=== PATIENT | male | born 1985 | race African-American/Black ===

== ENCOUNTER 2017-04-04 20:18 | Emergency (ER) | payer OTHER ==
[2017-04-04 20:50] LABS: BASOPHILS 1.6 % (0-2); EOSINOPHILS 1.9 % (0-7); HEMATOCRIT 40.3 % (42.0-54.0); HEMOGLOBIN 13.8 g/dL (13.5-17.5); LYMPHOCYTES 63.1 % (15-50); MCH 31.3 pg (26.0-34.0); MCHC 34.2 g/dL (31.0-37.0); MCV 91.4 fL (80.0-100.0); MEAN PLATELET VOLUME 9.8 fL (7.4-10.4); MONOCYTES 8.2 % (2-11); NEUTROPHILS 25.2 % (40-80); RBC 4.41 10x6/uL (4.20-6.10); RDW 18.3 % (11.5-14.5); WBC 6.9 10x3/uL (4.8-10.8)
[2017-04-04 20:53] LABS: PLATELET COUNT 120 10x3/uL (130-400)
[2017-04-04 21:07] LABS: ALBUMIN 3.9 g/dL (3.4-5.0); ALKALINE PHOSPHATASE 64 U/L (46-116); ALT (SGPT) 103 U/L (10-68); AMYLASE - SERUM 101 U/L (25-115); CALC OSMOLALITY 281 mosm/kg (275-300); CALCIUM 8.1 mg/dL (8.5-10.1); CARBON DIOXIDE 28.6 mmol/L (21.0-32.0); CHLORIDE - SERUM 104 mmol/L (98-107); CREATININE - SERUM 0.9 mg/dL (0.6-1.3); GLUCOSE 87 mg/dL (74-106); LIPASE 385 U/L (73-393); POTASSIUM - SERUM 3.4 mmol/L (3.5-5.1); PROTEIN - SERUM 7.9 g/dL (6.4-8.2); SODIUM 143 mmol/L (136-145); UREA NITROGEN 6 mg/dL (7-18); eGFR NON AFRICAN AMERICAN > 90 mL/min (90-120)
== END 2017-04-04 21:06 | disposition left against medical advice (07) ==
LOC: D.ER 20:18
PROVIDERS: Family Medicine
DX: R10.13 Epigastric pain (principal)

== ENCOUNTER 2017-11-11 22:54 | Emergency (ER) | payer OTHER ==
[2017-11-11 23:54] LABS: HEMATOCRIT 44.9 % (42.0-54.0); HEMOGLOBIN 15.1 g/dL (13.5-17.5); MCH 30.9 pg (26.0-34.0); MCHC 33.6 g/dL (31.0-37.0); MEAN PLATELET VOLUME 9.3 fL (7.4-10.4); PLATELET COUNT 192 10x3/uL (130-400); RBC 4.88 10x6/uL (4.20-6.10); RDW 14.7 % (11.5-14.5); WBC 9.8 10x3/uL (4.8-10.8)
[2017-11-12 00:07] LABS: ALBUMIN 4.3 g/dL (3.4-5.0); ALKALINE PHOSPHATASE 63 U/L (46-116); ALT (SGPT) 25 U/L (10-68); BILIRUBIN - TOTAL 0.19 mg/dL (0.2-1.3); CALC OSMOLALITY 289 mosm/kg (275-300); CARBON DIOXIDE 29.8 mmol/L (21.0-32.0); CHLORIDE - SERUM 105 mmol/L (98-107); GLUCOSE 99 mg/dL (74-106); MAGNESIUM - SERUM 2.3 mg/dL (1.8-2.4); PROTEIN - SERUM 8.1 g/dL (6.4-8.2); SODIUM 146 mmol/L (136-145); UREA NITROGEN 10 mg/dL (7-18); eGFR NON AFRICAN AMERICAN > 90 mL/min (90-120)
[2017-11-12 00:13] LABS: EOSINOPHILS 1 % (0-7); LYMPHOCYTES 66 % (15-50); MONOCYTES 6 % (2-11); NEUTROPHILS 27 % (40-80); PLATELET ESTIMATE DECREASED
== END 2017-11-12 13:00 | disposition home or self-care (01) ==
LOC: D.ER 22:54
PROVIDERS: Family Medicine
DX: F10.129 Alcohol abuse with intoxication, unspecified (principal); F10.10 Alcohol abuse, uncomplicated

== ENCOUNTER 2017-11-12 23:18 | Emergency (ER) | payer OTHER | END 2017-11-13 14:30 | disposition home or self-care (01) | LOC: D.ER 23:18 | DX: F10.10 Alcohol abuse, uncomplicated (principal); F17.200 Nicotine dependence, unspecified, uncomplicated ==

== ENCOUNTER 2018-11-13 17:29 | Emergency (ER) | payer SELFPAY ==
[~2018-11-13] VITALS: Ht 182.9 cm; Wt 77.3 kg
[2018-11-13 17:36] VITALS: Ht 182.9 cm; Wt 77.3 kg
[2018-11-14 11:01] VITALS: BP 114/80
== END 2018-11-14 11:04 | disposition home or self-care (01) ==
LOC: D.ER 17:29
DX: F10.129 Alcohol abuse with intoxication, unspecified (principal); F91.9 Conduct disorder, unspecified

== ENCOUNTER 2019-04-01 23:29 | Emergency (ER) | payer MEDICAID ==
[~2019-04-01] VITALS: Ht 182.9 cm; Wt 75.0 kg
[2019-04-01 23:33] VITALS: Ht 182.9 cm; Wt 75.0 kg
[2019-04-02 00:09] LABS: HEMATOCRIT 42.4 % (42.0-54.0); HEMOGLOBIN 14.4 g/dL (13.5-17.5); LYMPHOCYTES 56.6 % (15-50); MCH 31.2 pg (26.0-34.0); MEAN PLATELET VOLUME 9.5 fL (7.4-10.4); NEUTROPHILS 35.1 % (40-80); PLATELET COUNT 166 10x3/uL (130-400); RBC 4.61 10x6/uL (4.20-6.10); RDW 16.3 % (11.5-14.5); WBC 6.4 10x3/uL (4.8-10.8)
[2019-04-02 00:23] LABS: ALBUMIN 3.9 g/dL (3.4-5.0); ALKALINE PHOSPHATASE 87 U/L (46-116); ALT (SGPT) 35 U/L (10-68); BILIRUBIN - TOTAL 0.35 mg/dL (0.2-1.3); CALC OSMOLALITY 281 mosm/kg (275-300); CALCIUM 8.7 mg/dL (8.5-10.1); CARBON DIOXIDE 28.9 mmol/L (21.0-32.0); CHLORIDE - SERUM 103 mmol/L (98-107); CREATININE - SERUM 0.9 mg/dL (0.6-1.3); LIPASE 218 U/L (73-393); POTASSIUM - SERUM 3.9 mmol/L (3.5-5.1); PROTEIN - SERUM 8.2 g/dL (6.4-8.2); SODIUM 143 mmol/L (136-145); UREA NITROGEN 10 mg/dL (7-18); eGFR NON AFRICAN AMERICAN > 90 mL/min (90-120)
[2019-04-02 00:28] LABS: GLUCOSE 70 mg/dL (74-106)
[2019-04-02] MEDS ORDERED: CARAFATE1 G PO (00:41)
[2019-04-02 01:49] VITALS: BP 105/75
== END 2019-04-02 01:49 | disposition home or self-care (01) ==
LOC: D.ER 23:29
PROVIDERS: Emergency Medicine
DX: K29.20 Alcoholic gastritis without bleeding (principal)

== ENCOUNTER 2019-04-09 09:35 | Emergency (ER) | payer MEDICAID ==
[~2019-04-09 09:35] MED LIST: CARAFATE1 G PO
[2019-04-09 09:36] VITALS: BP 114/71; BMI 23.1
[2019-04-09 10:05] LABS: BASOPHILS 0.8 % (0-2); EOSINOPHILS 1.5 % (0-7); HEMATOCRIT 38.3 % (42.0-54.0); HEMOGLOBIN 13.4 g/dL (13.5-17.5); LYMPHOCYTES 50.8 % (15-50); MCH 31.4 pg (26.0-34.0); MCV 89.7 fL (80.0-100.0); MEAN PLATELET VOLUME 9.7 fL (7.4-10.4); MONOCYTES 6.6 % (2-11); NEUTROPHILS 40.3 % (40-80); PLATELET COUNT 141 10x3/uL (130-400); RBC 4.27 10x6/uL (4.20-6.10); RDW 16.2 % (11.5-14.5); WBC 7.4 10x3/uL (4.8-10.8)
[2019-04-09 10:15] LABS: ALBUMIN 3.7 g/dL (3.4-5.0); ALKALINE PHOSPHATASE 72 U/L (46-116); ALT (SGPT) 52 U/L (10-68); BILIRUBIN - TOTAL 0.23 mg/dL (0.2-1.3); CALCIUM 8.4 mg/dL (8.5-10.1); CARBON DIOXIDE 24.5 mmol/L (21.0-32.0); CHLORIDE - SERUM 104 mmol/L (98-107); CREATININE - SERUM 0.9 mg/dL (0.6-1.3); POTASSIUM - SERUM 3.5 mmol/L (3.5-5.1); PROTEIN - SERUM 7.7 g/dL (6.4-8.2); SODIUM 141 mmol/L (136-145); UREA NITROGEN 8 mg/dL (7-18); eGFR NON AFRICAN AMERICAN > 90 mL/min (90-120)
[2019-04-09 10:17] LABS: CALC OSMOLALITY 279 mosm/kg (275-300); GLUCOSE 118 mg/dL (74-106)
== END 2019-04-09 17:10 ==
LOC: D.ER 09:35
PROVIDERS: Family Medicine
DX: R45.1 Restlessness and agitation (principal); F10.10 Alcohol abuse, uncomplicated; F91.9 Conduct disorder, unspecified; S00.81XA Abrasion of other part of head, initial encounter; X58.XXXA Exposure to other specified factors, initial encounter; Y92.89 Other specified places as the place of occurrence of the external cause

== ENCOUNTER 2019-05-26 20:12 | Emergency (ER) | payer MEDICAID ==
[~2019-05-26] VITALS: Ht 182.9 cm; Wt 81.8 kg
[2019-05-26 20:13] VITALS: Ht 182.9 cm; Wt 81.8 kg
[2019-05-27 02:46] VITALS: BP 126/74
== END 2019-05-27 03:30 | disposition home or self-care (01) ==
LOC: D.ER 20:12
DX: F10.129 Alcohol abuse with intoxication, unspecified (principal)

== ENCOUNTER 2019-06-21 14:35 | Emergency (ER) | payer MEDICAID ==
[~2019-06-21] VITALS: Ht 182.9 cm; Wt 81.8 kg
[2019-06-21 14:39] VITALS: BP 105/57; Ht 182.9 cm; Wt 81.8 kg
== END 2019-06-21 17:51 | disposition left against medical advice (07) ==
LOC: D.ER 14:35
DX: F10.129 Alcohol abuse with intoxication, unspecified (principal); F17.200 Nicotine dependence, unspecified, uncomplicated

== ENCOUNTER 2019-06-22 21:54 | Emergency (ER) | payer MEDICAID ==
[~2019-06-22] VITALS: Ht 182.9 cm; Wt 79.5 kg
[2019-06-22 21:55] VITALS: Ht 182.9 cm; Wt 79.5 kg
[2019-06-22 22:13] LABS: HEMATOCRIT 35.8 % (42.0-54.0); HEMOGLOBIN 12.6 g/dL (13.5-17.5); MCH 31.6 pg (26.0-34.0); MCHC 35.2 g/dL (31.0-37.0); MCV 89.7 fL (80.0-100.0); MEAN PLATELET VOLUME 9.6 fL (7.4-10.4); PLATELET COUNT 152 10x3/uL (130-400); RBC 3.99 10x6/uL (4.20-6.10); RDW 17.1 % (11.5-14.5); WBC 7.3 10x3/uL (4.8-10.8)
[2019-06-22 22:29] LABS: ALBUMIN 3.6 g/dL (3.4-5.0); ALKALINE PHOSPHATASE 61 U/L (46-116); ALT (SGPT) 26 U/L (10-68); CALC OSMOLALITY 287 mosm/kg (275-300); CALCIUM 8.3 mg/dL (8.5-10.1); CARBON DIOXIDE 27.4 mmol/L (21.0-32.0); CHLORIDE - SERUM 106 mmol/L (98-107); GLUCOSE 95 mg/dL (74-106); POTASSIUM - SERUM 3.6 mmol/L (3.5-5.1); PROTEIN - SERUM 7.5 g/dL (6.4-8.2); SODIUM 145 mmol/L (136-145); UREA NITROGEN 9 mg/dL (7-18); eGFR NON AFRICAN AMERICAN 90 mL/min (90-120)
[2019-06-22 22:38] LABS: APPEARANCE CLEAR (CLEAR); BILIRUBIN NEGATIVE (NEGATIVE); COLOR STRAW (YELLOW); GLUCOSE NEGATIVE (NEGATIVE); KETONE NEGATIVE (NEGATIVE); NITRITE NEGATIVE (NEGATIVE); PROTEIN NEGATIVE (NEGATIVE); UROBILINOGEN NORMAL (NORMAL)
[2019-06-22 22:43] LABS: EOSINOPHILS 2 % (0-7); LYMPHOCYTES 73 % (15-50); MONOCYTES 1 % (2-11); NEUTROPHILS 24 % (40-80); PLATELET ESTIMATE NORMAL
[2019-06-22 22:43] LABS: UDS - AMPHET NEGATIVE QUAL (NEGATIVE); UDS - BARB NEGATIVE QUAL (NEGATIVE); UDS - BENZO NEGATIVE QUAL (NEGATIVE); UDS - COCAINE NEGATIVE QUAL (NEGATIVE); UDS - OPIATE NEGATIVE QUAL (NEGATIVE); UDS - PCP NEGATIVE QUAL (NEGATIVE); UDS - THC POSITIVE QUAL (NEGATIVE)
[2019-06-23 10:49] VITALS: BP 114/63
== END 2019-06-23 10:50 | disposition home or self-care (01) ==
LOC: D.ER 21:54
PROVIDERS: Family Medicine
DX: F10.129 Alcohol abuse with intoxication, unspecified (principal); Y90.8 Blood alcohol level of 240 mg/100 ml or more; F17.210 Nicotine dependence, cigarettes, uncomplicated

== ENCOUNTER 2021-01-17 15:47 | Emergency (ER) | payer BC ==
[~2021-01-17] VITALS: Ht 182.9 cm; Wt 77.3 kg
[2021-01-17 15:57] VITALS: BP 109/78; Ht 182.9 cm; Wt 77.3 kg
== END 2021-01-17 16:37 | disposition left against medical advice (07) ==
LOC: D.ER 15:47
DX: T73.0XXA Starvation, initial encounter (principal); Z53.29 Procedure and treatment not carried out because of patient's decision for other reasons

== ENCOUNTER 2021-01-30 21:08 | Emergency (ER) | payer BC ==
[~2021-01-30] VITALS: Ht 182.9 cm; Wt 72.7 kg
[2021-01-30 21:14] VITALS: Ht 182.9 cm; Wt 72.7 kg
[2021-01-30 21:43] LABS: BASOPHILS 0.9 % (0-2); EOSINOPHILS 0.9 % (0-7); HEMOGLOBIN 13.6 g/dL (13.5-17.5); IMMATURE GRANULOCYTES 0.1 % (0-5); LYMPHOCYTE ABS# 4.76 10x3/uL (1.32-3.57); LYMPHOCYTES 54.5 % (15-50); MCH 31.1 pg (26.0-34.0); MCV 91.3 fL (80.0-100.0); MEAN PLATELET VOLUME 8.7 fL (7.4-10.4); NEUTROPHILS 36.6 % (40-80); PLATELET COUNT 236 10x3/uL (130-400); RBC 4.38 10x6/uL (4.20-6.10); RDW 16.5 % (11.5-14.5); WBC 8.7 10x3/uL (4.8-10.8)
[2021-01-30 21:48] LABS: CALC OSMOLALITY 285 mosm/kg (275-300); CALCIUM 8.3 mg/dL (8.5-10.1); CARBON DIOXIDE 29.5 mmol/L (21.0-32.0); CHLORIDE - SERUM 106 mmol/L (98-107); CREATININE - SERUM 1.2 mg/dL (0.6-1.3); GLUCOSE 100 mg/dL (74-106); POTASSIUM - SERUM 3.6 mmol/L (3.5-5.1); SODIUM 144 mmol/L (136-145); UREA NITROGEN 11 mg/dL (7-18); eGFR NON AFRICAN AMERICAN 73 mL/min (90-120)
[2021-01-30 22:14] LABS: ALBUMIN 3.9 g/dL (3.4-5.0); ALKALINE PHOSPHATASE 73 U/L (30-120); ALT (SGPT) 25 U/L (10-68); BILIRUBIN - TOTAL 0.05 mg/dL (0.2-1.3); CREATINE KINASE 996 UL (21-232); LIPASE 405 U/L (73-393); MAGNESIUM - SERUM 2.5 mg/dL (1.8-2.4); PROTEIN - SERUM 7.9 g/dL (6.4-8.2); TROPONIN-I < 0.017 ng/mL (0.000-0.060)
[2021-01-30 23:06] LABS: UDS - AMPHET NEGATIVE QUAL (NEGATIVE); UDS - BARB NEGATIVE QUAL (NEGATIVE); UDS - BENZO NEGATIVE QUAL (NEGATIVE); UDS - COCAINE NEGATIVE QUAL (NEGATIVE); UDS - OPIATE POSITIVE QUAL (NEGATIVE); UDS - PCP NEGATIVE QUAL (NEGATIVE); UDS - THC NEGATIVE QUAL (NEGATIVE)
[2021-01-30 23:09] LABS: BILIRUBIN NEGATIVE (NEGATIVE); KETONE NEGATIVE (NEGATIVE); NITRITE NEGATIVE (NEGATIVE); UROBILINOGEN NORMAL mg/dL (< 2)
[2021-01-30 23:10] LABS: BACTERIA FEW HPF (NONE SEEN); SQUAMOUS EPITHELIAL 0-5 HPF (0-4); WHITE CELLS - URINE NONE SEEN HPF (0-1)
[2021-01-31 14:25] VITALS: BP 141/98
== END 2021-01-31 15:16 | disposition home or self-care (01) ==
LOC: D.ER 21:08
PROVIDERS: Family Medicine
DX: F10.129 Alcohol abuse with intoxication, unspecified (principal); Y90.8 Blood alcohol level of 240 mg/100 ml or more; R07.9 Chest pain, unspecified

== ENCOUNTER 2021-02-03 22:23 | Emergency (ER) | payer BC ==
[~2021-02-03] VITALS: Ht 182.9 cm; Wt 72.7 kg
[2021-02-03 22:24] VITALS: Ht 182.9 cm; Wt 72.7 kg
[2021-02-03 23:04] LABS: BASOPHILS 0.8 % (0-2); EOSINOPHILS 1.2 % (0-7); HEMATOCRIT 41.1 % (42.0-54.0); HEMOGLOBIN 13.7 g/dL (13.5-17.5); LYMPHOCYTE ABS# 4.24 10x3/uL (1.32-3.57); LYMPHOCYTES 64.4 % (15-50); MCH 30.8 pg (26.0-34.0); MCHC 33.3 g/dL (31.0-37.0); MCV 92.4 fL (80.0-100.0); MEAN PLATELET VOLUME 8.8 fL (7.4-10.4); MONOCYTES 6.2 % (2-11); NEUTROPHILS 27.4 % (40-80); RBC 4.45 10x6/uL (4.20-6.10); RDW 16.8 % (11.5-14.5); WBC 6.6 10x3/uL (4.8-10.8)
[2021-02-03 23:06] LABS: PLATELET COUNT 173 10x3/uL (130-400)
[2021-02-03 23:12] LABS: CALC OSMOLALITY 284 mosm/kg (275-300); CALCIUM 8.5 mg/dL (8.5-10.1); CARBON DIOXIDE 28.8 mmol/L (21.0-32.0); CHLORIDE - SERUM 105 mmol/L (98-107); GLUCOSE 95 mg/dL (74-106); POTASSIUM - SERUM 3.8 mmol/L (3.5-5.1); SODIUM 143 mmol/L (136-145); UREA NITROGEN 12 mg/dL (7-18); eGFR NON AFRICAN AMERICAN 90 mL/min (90-120)
[2021-02-03 23:16] LABS: BILIRUBIN NEGATIVE (NEGATIVE); KETONE NEGATIVE (NEGATIVE); NITRITE NEGATIVE (NEGATIVE); UROBILINOGEN NORMAL mg/dL (< 2)
[2021-02-03 23:28] LABS: ALBUMIN 3.8 g/dL (3.4-5.0); ALKALINE PHOSPHATASE 81 U/L (30-120); ALT (SGPT) 24 U/L (10-68); MAGNESIUM - SERUM 2.2 mg/dL (1.8-2.4); PROTEIN - SERUM 7.9 g/dL (6.4-8.2)
[2021-02-03 23:30] LABS: UDS - AMPHET NEGATIVE QUAL (NEGATIVE); UDS - BARB NEGATIVE QUAL (NEGATIVE); UDS - BENZO NEGATIVE QUAL (NEGATIVE); UDS - COCAINE NEGATIVE QUAL (NEGATIVE); UDS - OPIATE NEGATIVE QUAL (NEGATIVE); UDS - PCP NEGATIVE QUAL (NEGATIVE); UDS - THC POSITIVE QUAL (NEGATIVE)
[2021-02-04 16:05] VITALS: BP 118/79
== END 2021-02-04 16:05 | disposition home or self-care (01) ==
LOC: D.ER 22:23
PROVIDERS: Family Medicine
DX: F10.129 Alcohol abuse with intoxication, unspecified (principal); Y90.8 Blood alcohol level of 240 mg/100 ml or more; F32.9 Major depressive disorder, single episode, unspecified

== ENCOUNTER 2021-03-10 18:00 | Emergency (ER) | payer BC ==
[~2021-03-10] VITALS: Ht 182.9 cm; Wt 77.3 kg
[2021-03-10 18:04] VITALS: Ht 182.9 cm; Wt 77.3 kg
[2021-03-10 18:45] VITALS: BP 128/82
== END 2021-03-10 18:45 | disposition home or self-care (01) ==
LOC: D.ER 18:00
DX: F10.129 Alcohol abuse with intoxication, unspecified (principal); Y90.9 Presence of alcohol in blood, level not specified; T73.0XXA Starvation, initial encounter

== ENCOUNTER 2021-03-15 03:25 | Emergency (ER) | payer BC ==
[~2021-03-15] VITALS: Ht 182.9 cm; Wt 79.5 kg
[2021-03-15 03:35] VITALS: BP 123/87; Ht 182.9 cm; Wt 79.5 kg
== END 2021-03-15 06:25 | disposition home or self-care (01) ==
LOC: D.ER 03:25
DX: F10.129 Alcohol abuse with intoxication, unspecified (principal); Z76.5 Malingerer [conscious simulation]; Y90.9 Presence of alcohol in blood, level not specified

== ENCOUNTER 2021-04-26 15:01 | Emergency (ER) | payer BC ==
[~2021-04-26] VITALS: Ht 182.9 cm; Wt 72.7 kg
[2021-04-26 15:07] VITALS: Ht 182.9 cm; Wt 72.7 kg
[2021-04-26 15:27] LABS: BASOPHILS 1.1 % (0-2); EOSINOPHILS 1.3 % (0-7); HEMATOCRIT 41.1 % (42.0-54.0); HEMOGLOBIN 13.9 g/dL (13.5-17.5); LYMPHOCYTES 22.8 % (15-50); MCH 30.8 pg (26.0-34.0); MCHC 33.7 g/dL (31.0-37.0); MCV 91.3 fL (80.0-100.0); MEAN PLATELET VOLUME 8.1 fL (7.4-10.4); MONOCYTES 7.1 % (2-11); NEUTROPHILS 67.7 % (40-80); RBC 4.51 10x6/uL (4.20-6.10); WBC 9.2 10x3/uL (4.8-10.8)
[2021-04-26 15:31] LABS: PLATELET COUNT 132 10x3/uL (130-400)
[2021-04-26 15:35] LABS: CALC OSMOLALITY 282 mosm/kg (275-300); CALCIUM 8.3 mg/dL (8.5-10.1); CHLORIDE - SERUM 102 mmol/L (98-107); CREATININE - SERUM 1.1 mg/dL (0.6-1.3); GLUCOSE 130 mg/dL (74-106); SODIUM 141 mmol/L (136-145); UREA NITROGEN 12 mg/dL (7-18); eGFR NON AFRICAN AMERICAN 80 mL/min (90-120)
[2021-04-26 15:48] LABS: ALKALINE PHOSPHATASE 85 U/L (30-120); ALT (SGPT) 97 U/L (10-68); BILIRUBIN - TOTAL 0.31 mg/dL (0.2-1.3); MAGNESIUM - SERUM 1.8 mg/dL (1.8-2.4); PROTEIN - SERUM 8.2 g/dL (6.4-8.2)
[2021-04-26 16:35] VITALS: BP 121/86
== END 2021-04-26 18:05 | disposition home or self-care (01) ==
LOC: D.ER 15:01
PROVIDERS: Family Medicine
DX: F10.129 Alcohol abuse with intoxication, unspecified (principal); R94.5 Abnormal results of liver function studies; R73.9 Hyperglycemia, unspecified; E87.6 Hypokalemia

== ENCOUNTER → 2021-05-11 | Emergency (ER) | payer BC ==
[~2021-05-11] VITALS: Ht 182.9 cm; Wt 77.3 kg
[2021-05-11 17:01] VITALS: BP 121/68; Ht 182.9 cm; Wt 77.3 kg
[2021-05-11 17:21] LABS: HEMATOCRIT 38.4 % (42.0-54.0); HEMOGLOBIN 12.9 g/dL (13.5-17.5); MCH 30.8 pg (26.0-34.0); MCHC 33.7 g/dL (31.0-37.0); MCV 91.4 fL (80.0-100.0); MEAN PLATELET VOLUME 8.1 fL (7.4-10.4); RDW 17.3 % (11.5-14.5); WBC 6.5 10x3/uL (4.8-10.8)
[2021-05-11 17:25] LABS: CALC OSMOLALITY 282 mosm/kg (275-300); CALCIUM 7.6 mg/dL (8.5-10.1); CARBON DIOXIDE 27.7 mmol/L (21.0-32.0); CHLORIDE - SERUM 102 mmol/L (98-107); GLUCOSE 94 mg/dL (74-106); POTASSIUM - SERUM 3.3 mmol/L (3.5-5.1); SODIUM 143 mmol/L (136-145); UREA NITROGEN 8 mg/dL (7-18); eGFR NON AFRICAN AMERICAN 90 mL/min (90-120)
[2021-05-11 17:26] LABS: PLATELET COUNT 71 10x3/uL (130-400)
[2021-05-11 17:42] LABS: ALBUMIN 3.7 g/dL (3.4-5.0); ALKALINE PHOSPHATASE 83 U/L (30-120); ALT (SGPT) 104 U/L (10-68); BILIRUBIN - TOTAL 0.26 mg/dL (0.2-1.3); CKMB 1.5 U/L (0.0-3.6); CREATINE KINASE 630 UL (21-232); MAGNESIUM - SERUM 2.1 mg/dL (1.8-2.4); PROTEIN - SERUM 7.4 g/dL (6.4-8.2)
[2021-05-11 17:43] LABS: TROPONIN-I < 0.017 ng/mL (0.000-0.060)
[2021-05-11 17:58] LABS: EOSINOPHILS 2 % (0-7); LYMPHOCYTES 40 % (15-50); MONOCYTES 10 % (2-11); NEUTROPHILS 46 % (40-80); PLATELET ESTIMATE DECREASED
== END | disposition home or self-care (01) ==
LOC: D.ER 16:56
PROVIDERS: Family Medicine
DX: R07.9 Chest pain, unspecified (principal)